=== PATIENT | female | born 1980 | race Caucasian/White ===

== ENCOUNTER 2019-06-11 17:07 | Emergency (ER) | payer MEDICAID ==
[~2019-06-11] VITALS: Ht 162.6 cm; Wt 72.6 kg
[~2019-06-11 17:07] MED LIST: ACET-2619
[2019-06-11 17:20] VITALS: BP 108/63
--- NOTE | 2019-06-11 18:55 | NUR ---
PT AMBULATED TO ER BED 10
--- NOTE | 2019-06-11 19:50 | NUR ---
DR JACK AT BEDSIDE
--- NOTE | 2019-06-11 19:50 | NUR ---
C/O LEFT LOWER LEG PAIN 01/26 X 3 DAYS. SITE IS SWOLLEN, COLORED PURPLE AND RED. DENIES TRAUMA OR DISCHARGE. +CMS. PATIENT STATES SHE WAS USING SELF INJECTIONS FOR BLOOD THINNERS 6 MONTHS AGO. VSS. AA0X4. BED IS DOWN, LOCKED, BED RAIL X 1, ERMD TO SEE PT. DR DELAROSA AT BEDSIDE TRANSLATING [facility] HX: BLOOD CLOT LEFT LOWER LEG 8 MONTHS AGO. Addendum: 06/11/19 at 2043 by [email or web address] WAS USING BLOOD THINNERS FOR 6 MONTHS TOTAL AFTER BEING DIAGNOSED WITH DVT
--- NOTE | 2019-06-11 19:53 | NUR ---
LAST US 8 MONTHS AGO AND NO DVT PRESENT
[2019-06-11] MEDS ORDERED: CEPHALEXIN 500 MG CAP PO ONE (20:00)
[2019-06-11] MEDS ORDERED: ACETAMINOPHEN 325 MG TAB PO ONE (20:00)
--- NOTE | 2019-06-11 20:06 | NUR ---
TYLENOL AND KEFLEX ADMINISTERED ORDERED
--- NOTE | 2019-06-11 20:12 | NUR ---
VSS AT THIS TIME. BEDSIDE. RR EVEN AND UNLABORED.
--- NOTE | 2019-06-11 20:33 | NUR ---
US AT BEDSIDE
--- NOTE | 2019-06-11 21:02 | NUR ---
REPORT GIVEN TO VICKY OG
[2019-06-11 22:25] VITALS: BP 112/70
== END 2019-06-11 22:25 | disposition home or self-care (01) ==
LOC: MED 17:07
DX: L03.116 Cellulitis of left lower limb (principal); Z79.899 Other long term (current) drug therapy; Z86.718 Personal history of other venous thrombosis and embolism; Z79.01 Long term (current) use of anticoagulants
CPT/HCPCS: 93971; 99284; Q0092

== ENCOUNTER 2019-08-09 10:44 | Emergency (ER) | payer MEDICAID ==
[~2019-08-09] VITALS: Ht 124.5 cm; Wt 73.1 kg
[2019-08-09 10:49] VITALS: BP 109/75
--- NOTE | 2019-08-09 11:00 | NUR ---
PATIENT AMBULATED TO BED 7
--- NOTE | 2019-08-09 11:10 | NUR ---
PATIENT PRESENTS TO ED WITH LEFT SHOULDER PAIN X 1 DAY . PT STATES THAT PAIN COMES AND GOES. +RADIATES TO ARM AND NECK, -SWELLING, -NUMBNESS. DENIES N/V/D; SKIN IS PINK/WARM/DRY; AAOX4 WITH EVEN AND STEADY GAIT; LUNGS CLEAR BL; HR EVEN AND REGULAR; PT DENIES ANY FEVER, CP, SOB, OR COUGH AT THIS TIME; PATIENT STATES PAIN OF 10/10 AT THIS TIME; VSS; PATIENT POSITIONED FOR COMFORT; HOB ELEVATED; BEDRAILS UP X2; BED DOWN. ER TO SEE PT. Addendum: 08/09/19 [place] 1112 [place] [facility] [place] BEEN TAKING TYLENOL FOR EPISODES OF SHOULDER PAIN X 1 YEAR. PATIENT TOOK TYLENOL RECENTLY, WHICH PROVIDED NO RELIEF.
--- NOTE | 2019-08-09 11:32 | NUR ---
Dr. Bobo evaluating patient at bedside.
[2019-08-09] MEDS ORDERED: LIDOCAINE MPF 1% 10 MG/ML VIAL INJ ONE (11:35)
--- NOTE | 2019-08-09 12:00 | NUR ---
OBSERVED ER MD PERFORM PROCEDURE
[2019-08-09 12:07] VITALS: BP 109/75
== END 2019-08-09 12:07 | disposition home or self-care (01) ==
LOC: MED 10:44
DX: M62.830 Muscle spasm of back (principal); Z79.899 Other long term (current) drug therapy
CPT/HCPCS: 20552; 99284; J2001

== ENCOUNTER 2019-10-31 15:43 | Emergency (ER) | payer MEDICAID ==
[~2019-10-31] VITALS: Ht 152.4 cm; Wt 72.6 kg
[2019-10-31 16:43] VITALS: BP 112/72
[2019-10-31] MEDS ORDERED: KETOROLAC 30 MG/ML VIAL IM ONE (17:05)
--- NOTE | 2019-10-31 17:10 | NUR ---
38/F PRESENTS TO ED, C/O L SHOULDER TO L ARM, X4 DAY, +CMS DISTALLY. PT AWAKE AND ALERT, SKIN NORMAL COLOR WARM AND DRY, RR EVEN AND UNLABORED. DENIES MED HX. RX MOTRIN AT HOME.
[2019-10-31 17:22] VITALS: BP 112/72
== END 2019-10-31 17:22 | disposition home or self-care (01) ==
LOC: MED 15:43
DX: S46.912A Strain of unspecified muscle, fascia and tendon at shoulder and upper arm level, left arm, initial encounter (principal); Z79.899 Other long term (current) drug therapy; X58.XXXA Exposure to other specified factors, initial encounter; Y93.89 Activity, other specified; Y92.89 Other specified places as the place of occurrence of the external cause; Y99.8 Other external cause status
CPT/HCPCS: 96372; 99283; J1885

== ENCOUNTER 2021-06-28 14:54 | Emergency (ER) | payer MEDICAID ==
[~2021-06-28] VITALS: Ht 149.9 cm; Wt 71.7 kg
--- NOTE | 2021-06-28 15:00 | NUR ---
Manny matos in ED - 06/28/21 at 1502 by [email or web address] PT WANT TO CHECK HR: 86. PATIENT LEFT WITHOUT BEING TRIAGED. NO FURTHER CARE PROVIDED FOR PATIENT.
[2021-06-28 16:26] VITALS: BP 114/74
--- NOTE | 2021-06-28 19:40 | NUR ---
PT LWBS [id number]
--- NOTE | 2021-06-28 22:09 | NUR ---
CALLED FOR PT IN LOBBY AT [phone]. NO ANSWER
--- NOTE | 2021-06-28 22:29 | NUR ---
PT LWBS [id number]
== END 2021-06-28 22:28 | disposition left against medical advice (07) ==
LOC: MED 14:54
DX: Z53.21 Procedure and treatment not carried out due to patient leaving prior to being seen by health care provider (principal)